=== PATIENT | male | born 1985 | race Caucasian/White ===

== ENCOUNTER 2021-07-23 17:52 | Emergency (ER) | payer BC ==
[~2021-07-23] VITALS: Ht 175.3 cm; Wt 100.0 kg
[2021-07-23 18:53] LABS: HEMATOCRIT 40.1 % (39.0-50.0); HEMOGLOBIN 14.7 g/dl (14.0-18.0); IMMATURE GRANULOCYTES 0.2 % (0.0-5.0); MEAN CELL VOLUME 89.3 fL CALC (80.0-100.0); MEAN CORPUSCULAR HGB 32.7 pG CALC (26.0-32.0); MEAN CORPUSCULAR HGB CONC 36.7 g/dL CAL (32.0-36.0); NEUT# 4.43 thou/uL (1.82-7.42); RED BLOOD COUNT 4.49 mill/uL (4.70-6.10); RED CELL DISTRI WIDTH 11.7 % (11.5-15.5)
[2021-07-23 19:16] LABS: ANION GAP 15 (6-22 (CALC)); BUN 12 mg/dL (9-20); BUN/CREATININE RATIO 10 (12-20 (CALC)); CARBON DIOXIDE 24 mmol/l (22-30); CHLORIDE 106 mmol/l (95-108); CREATININE 1.2 mg/dL (0.7-1.3); GFR > 60 ML/MIN (>=60 (CALC)); GFR FOR AFR.AMER. > 60 ML/MIN (>=60 (CALC)); POTASSIUM 3.8 mmol/l (3.5-5.1); SODIUM 142 mmol/l (137-146)
[2021-07-23] MEDS ORDERED: XANAX0.25 MG PO (20:24)
[2021-07-23 20:39] VITALS: BP 131/67
== END 2021-07-23 21:05 | disposition home or self-care (01) | DRG 310 ==
LOC: ED 17:52
PROVIDERS: Family Medicine
DX: R00.2 Palpitations (principal); F41.9 Anxiety disorder, unspecified; K21.9 Gastro-esophageal reflux disease without esophagitis

== ENCOUNTER 2021-07-29 09:55 | Observation (INO) | payer BC ==
[~2021-07-29] VITALS: Ht 175.3 cm; Wt 100.0 kg
[~2021-07-29 09:55] MED LIST: XANAX0.25 MG PO
[2021-07-29 10:40] LABS: URINE BILIRUBIN - DIPSTICK NEGATIVE (NEGATIVE); URINE BLOOD DIPSTICK NEGATIVE (NEGATIVE); URINE COLOR YELLOW; URINE GLUCOSE - DIPSTICK NEGATIVE (NEGATIVE); URINE KETONE NEGATIVE (NEGATIVE); URINE LEUK ESTERASE NEGATIVE (NEGATIVE); URINE PROTEIN - DIPSTICK NEGATIVE (NEG-TRACE); URINE SPECIFIC GRAVITY 1.025; URINE UROBILINOGEN - DIPSTICK 0.2 E.U./dL (0.2)
[2021-07-29 10:41] LABS: URINE NITRITE - DIPSTICK NEGATIVE (Negative)
[2021-07-29 10:53] LABS: HEMATOCRIT 45.3 % (39.0-50.0); HEMOGLOBIN 15.7 g/dl (14.0-18.0); IMMATURE GRANULOCYTES 0.3 % (0.0-5.0); MEAN CELL VOLUME 92.4 fL CALC (80.0-100.0); MEAN CORPUSCULAR HGB CONC 34.7 g/dL CAL (32.0-36.0); NEUT# 3.94 thou/uL (1.82-7.42); RED BLOOD COUNT 4.9 mill/uL (4.70-6.10); RED CELL DISTRI WIDTH 12.1 % (11.5-15.5)
[2021-07-29 11:11] LABS: ALBUMIN 4.8 g/dL (3.2-5.0); ALKALINE PHOSPHATASE 74 u/l (38-126); ANION GAP 16 (6-22 (CALC)); BILIRUBIN, TOTAL 0.6 mg/dL (0.0-1.4); BUN 12 mg/dL (9-20); BUN/CREATININE RATIO 10 (12-20 (CALC)); CARBON DIOXIDE 27 mmol/l (22-30); CHLORIDE 105 mmol/l (95-108); CREATININE 1.2 mg/dL (0.7-1.3); ETHYL ALCOHOL 81 mg/dl (0-30); GFR > 60 ML/MIN (>=60 (CALC)); GFR FOR AFR.AMER. > 60 ML/MIN (>=60 (CALC)); LIPASE 102 u/l (23-300); MAGNESIUM 1.8 mg/dL (1.6-2.3); POTASSIUM 3.9 mmol/l (3.5-5.1); SGOT/AST 71 u/l (17-59); SODIUM 144 mmol/l (137-146); TOTAL PROTEIN 8.8 g/dL (6.3-8.2)
[2021-07-29 14:03] VITALS: BP 135/72
[2021-07-29 15:42] VITALS: BP 130/78
[2021-07-29 19:30] VITALS: BP 129/88
== END 2021-07-29 22:00 | disposition left against medical advice (07) | DRG 894 ==
LOC: ED 09:55 → ED-I 11:28 → ED 12:23 → MS2 12:24
PROVIDERS: Family Medicine; ADMIT Hospitalist; ATTEND Hospitalist
DX: F10.139 Alcohol abuse with withdrawal, unspecified (principal); R21 Rash and other nonspecific skin eruption; Y90.4 Blood alcohol level of 80-99 mg/100 ml; Z90.5 Acquired absence of kidney; Z20.822 Contact with and (suspected) exposure to COVID-19
CPT/HCPCS: G0378; J2060

== ENCOUNTER 2021-09-25 18:01 | Emergency (ER) | payer BC ==
[~2021-09-25] VITALS: Ht 175.3 cm; Wt 107.0 kg
[2021-09-25] MEDS ORDERED: VENTOLIN HFA IN (18:21)
[2021-09-25] MEDS ORDERED: MOTRIN800 MG PO (21:06)
[2021-09-25] MEDS ORDERED: ZOFRAN4 MG/TAB PO (21:06)
[2021-09-25 21:09] VITALS: BP 146/95
== END 2021-09-25 21:15 | disposition home or self-care (01) | DRG 90 ==
LOC: ED 18:01
DX: S06.0X9A Concussion with loss of consciousness of unspecified duration, initial encounter (principal); S00.12XA Contusion of left eyelid and periocular area, initial encounter; S00.11XA Contusion of right eyelid and periocular area, initial encounter; X58.XXXA Exposure to other specified factors, initial encounter; Z90.5 Acquired absence of kidney